=== PATIENT | male | born 1990 | race Caucasian/White ===

== ENCOUNTER 2017-02-20 18:56 | Emergency (ER) | payer MEDICAID ==
[2017-02-20 19:54] VITALS: BP 126/66
--- NOTE | 2017-02-20 20:54 | UC ---
General HPI - HPI Summary HPI Summary: This is an otherwise healthy 26 yo male who presents with complaints of a several week history of body aches, fatigue and intermittent fever. He is concerned about Lyme disease. He has had multiple tick bites over the last few months. Denies rash. Occasional nausea and diarrhea. He has not seen his PCP for these complaints. - History of Current Complaint Chief Complaint: UCGeneralIllness Stated Complaint: TEST FOR LYME DISEASE - Allergy/Home Medications Allergies/Adverse Reactions: Allergies Allergy/AdvReac Type Severity Reaction Status Date / Time No Known Allergies Allergy Verified 02/20/17 19:55 PMH/Surg Hx/FS Hx/Imm Hx Previously Healthy: Yes - Surgical History Surgical History: None - Family History Known Family History: Positive: None - Social History Alcohol Use: Occasionally Substance Use Type: Prescribed Substance Use Comment - Amount & Last Used: Benzos Smoking Status (MU): Former Smoker Review of Systems Constitutional: Fever, Fatigue Skin: Negative Eyes: Negative ENT: Negative Respiratory: Negative Cardiovascular: Negative Gastrointestinal: Diarrhea, Nausea Genitourinary: Negative Motor: Negative Neurovascular: Negative Musculoskeletal: Negative Neurological: Negative Psychological: Negative All Other Systems Reviewed And Are Negative: Yes Physical Exam Triage Information Reviewed: Yes Appearance: Well-Appearing Vital Signs: Initial Vital Signs Temp 97.8 F 02/20/17 19:51 Pulse 54 02/20/17 19:51 Resp 12 02/20/17 19:51 BP 126/66 02/20/17 19:51 Pulse Ox 100 02/20/17 19:51 Vital Signs Reviewed: Yes ENT: Positive: Normal ENT inspection Neck: Positive: Supple, Nontender, No Lymphadenopathy Respiratory: Positive: Chest non-tender, Lungs clear, Normal breath sounds. Negative: Crackles, Rhonchi, Wheezing Cardiovascular: Positive: RRR, No Murmur Abdomen Description: Positive: Nontender, Soft Musculoskeletal: Positive: Strength Intact Neurological Exam: Normal Neurological: Positive: Alert Skin Exam: Normal Skin: Negative: rashes Course/Dx - Course Course Of Treatment: This is an otherwise healthy 26 yo male who presents with c /o a several month history of body aches and fatigue with intermittent fevers and multiple tick bites. Lyme could certainly explain his symptoms but recommended he follow up with his primary care provider regarding his symptoms. Lyme serology drawn this evening and empirically started on doxycycline - Differential Dx - Multi-Symptom Provider Diagnoses: 1. Possible Lyme disease Discharge - Discharge Plan Condition: Stable Disposition: HOME Prescriptions: DOXYcycline CAP(*) [DOXYcycline 100MG CAP(*)] 100 mg PO BID #28 cap Patient Education Materials: Lyme Disease (ED) Referrals: Vilma Quiroz MD [Primary Care Provider] - 5 Days Additional Instructions: Activity: As tolerated Instructions: 1. Take antibiotic as directed 2. We will get results of your Lyme testing early next week 3. If the antibiotics are helping but the test is negative, please continue the full course of antibiotics 4. Please follow up with your primary care provider regarding your symptoms
[2017-02-24 21:35] LABS: Lyme Disease IgG Ab WB Negative (Negative)
== END 2017-02-20 21:03 | disposition home or self-care (01) ==
LOC: UCEAST 18:56
DX: Z11.2 Encounter for screening for other bacterial diseases (principal); Z87.891 Personal history of nicotine dependence
CPT/HCPCS: 86617; 99212; G0463

== ENCOUNTER 2017-07-14 15:06 | Emergency (ER) | payer OTHER ==
--- NOTE | 2017-07-14 16:24 | UC ---
Respiratory Complaint HPI - HPI Summary HPI Summary: Congestion, fever and fatigue for 2 days - History of Current Complaint Chief Complaint: UCRespiratory Stated Complaint: CHEST CONGESTION Time Seen by Provider: 07/14/17 16:17 Hx Obtained From: Patient Onset/Duration: Sudden Onset, Lasting Days - 2, Still Present, Worse Since - today Timing: Constant Severity Initially: Moderate Severity Currently: Moderate Pain Intensity: 5 Pain Scale Used: 0-10 Numeric Character: Cough: Nonproductive Aggravating Factors: Nothing Alleviating Factors: Nothing Associated Signs And Symptoms: Positive: Dyspnea, Fever, URI - Allergies/Home Medications Allergies/Adverse Reactions: Allergies Allergy/AdvReac Type Severity Reaction Status Date / Time No Known Allergies Allergy Verified 02/20/17 19:55 Home Medications: Home Medications Buprenorphine HCl-Naloxone HCl [Suboxone] 1 mis SL 07/14/17 [History] Escitalopram Oxalate [Lexapro 10 mg] 10 mg PO DAILY 07/14/17 [History Confirmed 07/14/17] PMH/Surg Hx/FS Hx/Imm Hx Previously Healthy: Yes Psychological History: Anxiety, Other Other Psychological History: Substance abuse disorder in remission - Surgical History Surgical History: None - Family History Known Family History: Positive: None - Social History Occupation: Employed Full-time Lives: With Family Alcohol Use: None Substance Use Type: None Substance Use Comment - Amount & Last Used: Benzos Smoking Status (MU): Light Every Day Tobacco Smoker Type: Smokeless Tobacco Review of Systems Constitutional: Fever, Chills, Fatigue Skin: Negative Eyes: Negative ENT: Negative Respiratory: Cough Cardiovascular: Negative Gastrointestinal: Negative Genitourinary: Negative Motor: Negative Neurovascular: Negative Musculoskeletal: Negative Neurological: Negative Psychological: Negative Is Patient Immunocompromised?: No All Other Systems Reviewed And Are Negative: Yes Physical Exam Triage Information Reviewed: Yes Appearance: Well-Appearing, No Pain Distress, Well-Nourished Vital Signs: Initial Vital Signs Temp 99.4 F 07/14/17 15:24 Pulse 69 07/14/17 15:24 Resp 18 07/14/17 15:24 BP 115/49 07/14/17 15:24 Pulse Ox 100 07/14/17 15:24 Vital Signs Reviewed: Yes Eye Exam: Normal Eyes: Positive: Conjunctiva Clear ENT Exam: Normal ENT: Positive: Normal ENT inspection, Hearing grossly normal, Pharynx normal, TMs normal, Uvula midline. Negative: Nasal congestion, Nasal drainage, Tonsillar swelling, Tonsillar exudate, Trismus, Muffled voice, Hoarse voice, Dental tenderness, Sinus tenderness Dental Exam: Normal Neck exam: Normal Neck: Positive: Supple, Nontender, No Lymphadenopathy Respiratory Exam: Normal Respiratory: Positive: Chest non-tender, Lungs clear, Normal breath sounds, No respiratory distress, No accessory muscle use Cardiovascular Exam: Normal Cardiovascular: Positive: RRR, No Murmur, Pulses Normal, Brisk Capillary Refill Musculoskeletal Exam: Normal Musculoskeletal: Positive: Strength Intact, ROM Intact, No Edema Neurological Exam: Normal Neurological: Positive: Alert, Muscle Tone Normal Psychological Exam: Normal Skin Exam: Normal UC Diagnostic Evaluation - Laboratory O2 Sat by Pulse Oximetry: 100 Diagnostic Studies Comment: influenza A/B (-) - Radiology Xray Interpretation: No Acute Changes Radiology Interpretation Completed By: ED Physician, Radiologist Respiratory Course/Dx - Course Course Of Treatment: zithromax, albuterol, tylenol, ibuprofen increase fluids follow with pcp prn - Differential Dx/Diagnosis Provider Diagnoses: Acute Bronchitis Discharge - Discharge Plan Condition: Stable Disposition: HOME Prescriptions: Albuterol HFA INHALER* [Ventolin HFA Inhaler*] 2 puff INH Q4H PRN #1 mdi PRN Reason: cough wheeze Azithromycin TAB* [Zithromax TAB (Z-FATMATA) 250 mg #6 tabs] 2 tab PO .TODAY, THEN 1 DAILY #1 fatmata Patient Education Materials: Acute Bronchitis (ED) Forms: *Work Release Referrals: [facility] [Outside] - If Needed
[2017-07-14] MEDS ORDERED: Albuterol/Ipratropium NEB.SOL* Albuterol 2.5 MG/Ipratropium 0.5 MG 3 ML INH ONE (16:25)
[2017-07-14] MEDS ORDERED: Ibuprofen TAB* 600 MG PO ONE (17:19)
[2017-07-14 17:24] VITALS: BP 140/51
--- NOTE | 2017-07-14 17:40 | RAD ---
HISTORY: Fever and cough COMPARISONS: March 13, 2011 VIEWS: 4: Frontal dual-energy and lateral views of the chest. FINDINGS: CARDIOMEDIASTINAL SILHOUETTE: The cardiomediastinal silhouette is normal. JOANNA: The joanna are normal. PLEURA: The costophrenic angles are sharp. No pleural abnormalities are noted. LUNG PARENCHYMA: The lungs are clear. ABDOMEN: The upper abdomen is clear. There is no subphrenic gas. BONES AND SOFT TISSUES: No bone or soft tissue abnormalities are noted. OTHER: None. IMPRESSION: NO ACTIVE CARDIOPULMONARY DISEASE.
== END 2017-07-14 18:05 | disposition home or self-care (01) ==
LOC: UCEAST 15:06
DX: J20.9 Acute bronchitis, unspecified (principal); F41.9 Anxiety disorder, unspecified; F19.11 Other psychoactive substance abuse, in remission; F17.200 Nicotine dependence, unspecified, uncomplicated
CPT/HCPCS: 71020; 87502; 99212; A9270-GY; G0463

== ENCOUNTER 2018-01-30 15:25 | Emergency (ER) | payer OTHER ==
[2018-01-30 15:36] VITALS: BP 130/72
--- NOTE | 2018-01-30 15:40 | UC ---
Skin Complaint HPI - HPI Summary HPI Summary: 27 yo male presents with rash to anterior left thigh, low grade fever, and body aches/joint pain for the last 3 days. He tells me that about 3 days ago he developed general body aches, fatigue, headache, and joint pain in his shoulders and knees - over the course of this time has had a low grade fever of around 99F. 2 days ago he noticed a round rash on the front of his thigh that has gotten larger since. He tells me that he gets bitten by ticks "all the time ". He denies SOB, chest pain, abdominal pain, n/v/d/c, dysuria, or recent illness. - History of Current Complaint Chief Complaint: UCBackPain Time Seen by Provider: 01/30/18 15:40 Stated Complaint: BACK PAIN, FEVER AND RASH Hx Obtained From: Patient Onset/Duration: Sudden Onset Onset Severity: Mild Current Severity: Mild Pain Intensity: 4 Pain Scale Used: 0-10 Numeric Location: Diffuse - Allergy/Home Medications Allergies/Adverse Reactions: Allergies Allergy/AdvReac Type Severity Reaction Status Date / Time No Known Allergies Allergy Verified 01/30/18 15:36 Home Medications: Home Medications Acetaminophen [Tylenol] 650 mg 01/30/18 [History] Ibuprofen 01/30/18 [History] Review of Systems Constitutional: Fever, Fatigue, Other - Body aches Skin: Rash Eyes: Negative ENT: Negative Respiratory: Negative Cardiovascular: Negative Gastrointestinal: Negative Genitourinary: Negative Motor: Negative Neurovascular: Negative Musculoskeletal: Arthralgia Neurological: Headache Psychological: Negative All Other Systems Reviewed And Are Negative: Yes PMH/Surg Hx/FS Hx/Imm Hx Respiratory History: Asthma - Surgical History Surgical History: None - Family History Known Family History: Positive: None - Social History Occupation: Employed Full-time Lives: With Family Alcohol Use: None Substance Use Type: None Substance Use Comment - Amount & Last Used: Benzos Smoking Status (MU): Light Every Day Tobacco Smoker Type: Smokeless Tobacco Physical Exam - Summary Physical Exam Summary: GENERAL: NAD. WDWN. No pain distress. SKIN: Right anterior thigh: 4.0cm bull's eye rash with central 1mm bite - consistent with tick. No other rash, open wounds, streaking, or edema. HEENT: Head: AT/NC Eyes: PERRLA. EOM intact. Conjunctiva clear without inflammation or discharge. Ears: Hearing grossly normal. TMs intact, no bulging, erythema, or edema. Nose: Nasal mucosa pink and moist. NTTP maxillary and frontal sinus. Throat: Posterior oropharynx without exudates, erythema, or tonsillar enlargement. Uvula midline. NECK: Supple. Nontender. No lymphadenopathy. CHEST: CTAB. No r/r/w. No accessory muscle use. Breathing comfortably and in no distress. CV: RRR. Without m/r/g. Pulses intact. Brisk cap refill. ABDOMEN: Soft. NTTP. No distention or guarding., No organomegaly. No CVA tenderness. Bowel sounds present MSK: FROM and 5/5 strength throughout. No edema. NEURO: Alert. CN II-XII grossly intact. PSYCH: Age appropriate behavior. Triage Information Reviewed: Yes Vital Signs: Initial Vital Signs Temp 98.6 F 01/30/18 15:29 Pulse 69 01/30/18 15:29 Resp 18 01/30/18 15:29 BP 130/72 01/30/18 15:29 Pulse Ox 100 01/30/18 15:29 Laboratory Tests 01/30/18 16:05 POC Urine Color Yellow POC Urine Clarity Clear POC Urine pH 6.0 POC Ur Specif [place] >= 1.030 POC Urine Protein Negative POC Ur Glucose (UA) Negative POC Urine Ketones Trace A POC Urine Blood Negative POC Urine Nitrite Negative POC Urine Bilirubin Negative POC Urine Urobilinogen 0.2 POC U Leukocyte Esteras Negative Course/Dx - Course Course Of Treatment: UA is unremarkable. Given his bull's eye rash and symptom history - it is likely that he has lyme disease. I had a long discussion with the pt regarding testing vs treating. He elected to begin treatment now without testing and f/u with Dr. Murry if symptoms do not improve. - Diagnoses Provider Diagnoses: Lyme disease. Bull's eye rash Discharge - Sign-Out/Discharge Documenting (check all that apply): Discharge/Admit/Transfer - Discharge Plan Condition: Stable Disposition: HOME Prescriptions: DOXYcycline CAP(*) [DOXYcycline 100MG CAP(*)] 100 mg PO BID #42 cap Patient Education Materials: Doxycycline (By mouth), Lyme Disease (ED) Referrals: No Primary Care Phys,NOPCP [Primary Care Provider] - Mario Murry MD [Medical Doctor] - If Needed Additional Instructions: If you develop a fever, shortness of breath, chest pain, new or worsening symptoms - please call your PCP or go to the ED. 1) If you finish the course of Doxycycline and are still having symptoms - please call Dr. Murry at the number below to schedule a follow up appointment. - Billing Disposition and Condition Condition: STABLE Disposition: Home
== END 2018-01-30 16:23 | disposition home or self-care (01) ==
LOC: UCEAST 15:25
DX: A69.20 Lyme disease, unspecified (principal); R21 Rash and other nonspecific skin eruption; F17.200 Nicotine dependence, unspecified, uncomplicated
CPT/HCPCS: 81003; 99212; G0463

== ENCOUNTER 2018-01-31 12:27 | Emergency (ER) | payer OTHER ==
[2018-01-31] MEDS ORDERED: NS 0.9% 1000 ML*IV.FLUID IV ONE (13:02)
[2018-01-31] MEDS ORDERED: Ondansetron ODT TAB* 4 MG PO ONE (13:05)
--- NOTE | 2018-01-31 13:30 | RAD ---
Indication: Back pain. CT of the abdomen and pelvis was performed without oral or IV contrast administration. Coronal and sagittal reconstructed images were obtained. Comparison is made with previous exam dated July 02, 2009 The lung bases demonstrates likely scarring or atelectasis in the left lower lobe. The liver demonstrates no focal masses. Normal in size. No intrahepatic ductal dilatation is noted. Gallbladder demonstrates no calcified gallstones. Pancreas demonstrates no mass or pancreatic duct dilatation. Spleen measures 13.6 cm in length and appears to be enlarged. No adrenal masses are noted. The kidneys demonstrate no definite hydronephrosis of either kidney. No ureteral calculi is definitively identified. The urinary bladder is otherwise unremarkable. Aorta and inferior vena cava are unremarkable. No pelvic adenopathy is noted. No dilated loops of bowel are noted. The colon is filled with stool. Likely normal appendix is noted. There is a small to moderate amount of free fluid in the cul-de-sac. Origin of which is undetermined. The colon is filled with stool. The bony structures are grossly unremarkable. IMPRESSION: Splenomegaly. Small to moderate amount of free fluid in the cul-de-sac origin of which is unclear.
--- NOTE | 2018-01-31 13:35 | RAD ---
Indication: Fever. Single frontal view of the chest performed at 1312 hours was reviewed. Comparison is made with previous exam dated July 14, 2017. No mediastinal shift is noted. Heart is of normal size and configuration. Lung heredia appear clear. IMPRESSION: NO ACTIVE CARDIOPULMONARY DISEASE IS NOTED.
[2018-01-31] MEDS ORDERED: cefTRIAXone(*) 1 GM in NS 0.9% 50 ML* 50 ML IVPB ONE (13:47)
[2018-01-31 13:59] LABS: ABS Basophils 0 10^3/ul (0-0.2); ABS Eosinophils 0 10^3/ul (0-0.6); ABS Lymphocytes 0.6 10^3/ul (1.0-4.8); ABS Monocytes 0.3 10^3/ul (0-0.8); ABS Neutrophils 3.9 10^3/ul (1.5-7.7); ABS Nucleated RBC 0 10^3/ul; Eosinophil % 0.2 % (0-6); Hematocrit 44 % (42-52); Hemoglobin 15.2 g/dl (14.0-18.0); Lymphocyte % 11.9 % (25-47); Mean Corpuscular HGB Conc 35 g/dl (31-36); Mean Corpuscular Hemoglobin 27 pg (27-31); Mean Corpuscular Volume 78 fL (80-94); Mean Platelet Volume 7.7 um3 (7.4-10.4); Nucleated Red Blood Cells % 0.3; Platelet Count 137 10^3/ul (150-450); Red Cell Distribution Width 13 % (10.5-15); White Blood Count 4.8 10^3/ul (3.5-10.8)
[2018-01-31 14:07] LABS: INR 1.07 (0.77-1.02)
[2018-01-31 14:16] LABS: EGFR Non-African American 138.9 (>60)
[2018-01-31] MEDS ORDERED: Ketorolac INJ* 30 MG/ML 1 ML VIAL IV ONE (15:48)
[2018-01-31] MEDS ORDERED: Ketorolac INJ* 30 MG/ML 1 ML VIAL ONE (15:49)
[2018-01-31 15:55] VITALS: BP 125/69
[2018-01-31 16:23] LABS: Urine Appearance Clear; Urine Blood Negative (Negative); Urine Color Yellow; Urine Ketones Negative (Negative); Urine Protein Negative (Negative); Urine Specific Gravity 1.025 (1.010-1.030); Urine Urobilinogen Negative (Negative)
--- NOTE | 2018-01-31 18:48 | ED ---
Mike Kaiser Tariq, scribed for Grant Sherman MD on 01/31/18 at 1327 . Back Pain - HPI Summary HPI Summary: A 27 y/o male presents to ED c/o constant back pain. Additionally c/o neck pain. According to pt, he feels pressure in the lower part of his back, off to both sides. Pains started 3 days ago when he woke up in the morning. Once he was out of bed, his back was "killing" him and he could barely walk. Additional Sx include intermittent joint pain and diffuse myalgia. Furthermore, he has a headache, nausea and rash on the left thigh. Throughout the last 3 days, the pain became worse. Additionally, pt noted low-grade fevers in upper 90s. Pt denies any issues with urination or diarrhea. He does not believe it is a kidney stone because he has had them in the past and the pain is very different. SHx of imbookin ([place])ing work. No allergies. Current medications are Doxycycline (taken 2 doses), Tylenol and Ibuprofen (1.5 hours ago). - History of Current Complaint Chief Complaint: EDFever Stated Complaint: VOMITING/FLANK PAIN Time Seen by Provider: 01/31/18 12:43 Hx Obtained From: Patient Onset/Duration: Sudden Onset, Lasting Days, Still Present, Worse Since - 3 days ago Onset/Duration: Started Days Ago, Still Present, Worse Since - 3 days ago Timing: Constant - Back pain, Intermittent - Joint and diffuse myalgia, Lasting Days - 3 days Back Pain Location: Is Diffuse - Off to sides Severity Initially: Severe Severity Currently: Moderate Pain Intensity: 6 Pain Scale Used: 0-10 Numeric Character: Aching - Pressure Aggravating Symptom(s): Movement, Walking, Other - Certain positions Alleviating Symptom(s): Position, OTC Meds - Tylenol and Ibuprofen - Allergies/Home Medications Allergies/Adverse Reactions: Allergies Allergy/AdvReac Type Severity Reaction Status Date / Time No Known Allergies Allergy Verified 01/31/18 12:47 PMH/Surg Hx/FS Hx/Imm Hx Endocrine/Hematology History: Denies: Hx Diabetes Cardiovascular History: Denies: Hx Hypertension Respiratory History: Reports: Hx Asthma - childhood History: Reports: Hx Kidney Stones Infectious Disease History: No Infectious Disease History: Denies: Traveled Outside the [place] in Last 30 Days - Family History Known Family History: Positive: Diabetes - Social History Alcohol Use: None Substance Use Type: Reports: None Substance Use Comment - Amount & Last Used: Benzos Smoking Status (MU): Light Every Day Tobacco Smoker Type: Smokeless Tobacco Review of Systems Positive: Nausea. Negative: Diarrhea Positive: no symptoms reported Positive: Myalgia - Diffuse, Other - POSITIVE: Joint pain, neck pain, back pain Positive: Headache All Other Systems Reviewed And Are Negative: Yes Physical Exam - Summary Physical Exam Summary: General:Mildly ill appearing Skin:Boli rash 4 cm in length. Head:normal Eyes:EOMI, [place] ENT:normal Neck:supple with FROM, nontender Respiratory:CTA, breath sounds present Cardiovascular:RRR Abdomen:soft, nontender Bowel:present Musculoskeletal:Tender bilateral flanks, not at midline. Tender lateral neck, not at midline. Neurological:sensory/motor intact, A&O x3 Psychological:affect/mood appropriate Triage Information Reviewed: Yes Vital Signs On Initial Exam: Initial Vitals Temp Pulse Resp BP Pulse Ox 100.5 F 72 16 153/90 98 01/31/18 12:42 01/31/18 12:42 01/31/18 12:42 01/31/18 12:42 01/31/18 12:42 Vital Signs Reviewed: Yes Diagnostics - Vital Signs Vital Signs Temp Pulse Resp BP Pulse Ox 01/31/18 12:42 100.5 F 72 16 153/90 98 - Laboratory Lab Results: Lab Results 01/31/18 01/31/18 01/31/18 Range/Units 13:49 13:49 13:49 WBC 4.8 (3.5-10.8) 10^3/ul RBC 5.60 H (4.00-5.40) 10^6/ul Hgb 15.2 (14.0-18.0) g/dl Hct 44 (42-52) % MCV 78 L (80-94) fL MCH 27 (27-31) pg MCHC 35 (31-36) g/dl RDW 13 (10.5-15) % Plt Count 137 L (150-450) 10^3/ul MPV 7.7 (7.4-10.4) um3 Neut % (Auto) 80.9 (38-83) % Lymph % (Auto) 11.9 L (25-47) % [place] % (Auto) 6.6 (0-7) % Eos % (Auto) 0.2 (0-6) % Baso % (Auto) 0.4 (0-2) % Absolute Neuts (auto) 3.9 (1.5-7.7) 10^3/ul Absolute Lymphs (auto) 0.6 L (1.0-4.8) 10^3/ul Absolute Monos (auto) 0.3 (0-0.8) 10^3/ul Absolute Eos (auto) 0 (0-0.6) 10^3/ul Absolute Basos (auto) 0 (0-0.2) 10^3/ul Absolute Nucleated RBC 0 10^3/ul Nucleated RBC % 0.3 INR (Anticoag Therapy) 1.07 H (0.77-1.02) APTT 28.7 (26.0-36.3) seconds Sodium (135-145) mmol/L Potassium (3.5-5.0) mmol/L Chloride (101-111) mmol/L Carbon Dioxide (22-32) mmol/L Anion Gap (2-11) mmol/L BUN (6-24) mg/dL Creatinine (0.67-1.17) mg/dL Est GFR ( Amer) (>60) Est GFR (Non-Af Amer) (>60) BUN/Creatinine Ratio (8-20) Glucose (70-100) mg/dL Lactic Acid (0.5-2.0) mmol/L Calcium (8.6-10.3) mg/dL Total Bilirubin (0.2-1.0) mg/dL AST (13-39) U/L ALT (7-52) U/L Alkaline Phosphatase (34-104) U/L Total Creatine Kinase (10-223) U/L Troponin I (<0.04) ng/mL C-Reactive Protein (<8.01) mg/L Total Protein (6.4-8.9) g/dL Albumin (3.2-5.2) g/dL Globulin (2-4) g/dL Albumin/Globulin Ratio (1-3) Lipase (11.0-82.0) U/L Urine Color Yellow Urine Appearance Clear Urine pH 6.0 (5-9) Ur Specific [place] 1.025 (1.010-1.030) Urine Protein Negative (Negative) Urine Ketones Negative (Negative) Urine Blood Negative (Negative) Urine Nitrate Negative (Negative) Urine Bilirubin Negative (Negative) Urine Urobilinogen Negative (Negative) Ur Leukocyte Esterase Trace A (Negative) Urine WBC (Auto) Trace(0-5/hpf) (Absent) Urine RBC (Auto) 1+(3-5/hpf) A (Absent) Urine Bacteria Absent (Absent) Urine Glucose Negative (Negative) Monoscreen Negative (Negative) 01/31/18 01/31/18 Range/Units 13:49 13:49 WBC (3.5-10.8) 10^3/ul RBC (4.00-5.40) 10^6/ul Hgb (14.0-18.0) g/dl Hct (42-52) % MCV (80-94) fL MCH (27-31) pg MCHC (31-36) g/dl RDW (10.5-15) % Plt Count (150-450) 10^3/ul MPV (7.4-10.4) um3 Neut % (Auto) (38-83) % Lymph % (Auto) (25-47) % [place] % (Auto) (0-7) % Eos % (Auto) (0-6) % Baso % (Auto) (0-2) % Absolute Neuts (auto) (1.5-7.7) 10^3/ul Absolute Lymphs (auto) (1.0-4.8) 10^3/ul Absolute Monos (auto) (0-0.8) 10^3/ul Absolute Eos (auto) (0-0.6) 10^3/ul Absolute Basos (auto) (0-0.2) 10^3/ul Absolute Nucleated RBC 10^3/ul Nucleated RBC % INR (Anticoag Therapy) (0.77-1.02) APTT (26.0-36.3) seconds Sodium 130 L (135-145) mmol/L Potassium 4.2 (3.5-5.0) mmol/L Chloride 98 L (101-111) mmol/L Carbon Dioxide 25 (22-32) mmol/L Anion Gap 7 (2-11) mmol/L BUN 9 (6-24) mg/dL Creatinine 0.68 (0.67-1.17) mg/dL Est GFR ( Amer) 168.0 (>60) Est GFR (Non-Af Amer) 138.9 (>60) BUN/Creatinine Ratio 13.2 (8-20) Glucose 111 H (70-100) mg/dL Lactic Acid 1.0 (0.5-2.0) mmol/L Calcium 9.8 (8.6-10.3) mg/dL Total Bilirubin 0.50 (0.2-1.0) mg/dL AST 47 H (13-39) U/L ALT 79 H (7-52) U/L Alkaline Phosphatase 71 (34-104) U/L Total Creatine Kinase 77 (10-223) U/L Troponin I 0.00 (<0.04) ng/mL C-Reactive Protein 88.57 H (<8.01) mg/L Total Protein 7.5 (6.4-8.9) g/dL Albumin 4.2 (3.2-5.2) g/dL Globulin 3.3 (2-4) g/dL Albumin/Globulin Ratio 1.3 (1-3) Lipase < 10 L (11.0-82.0) U/L Urine Color Urine Appearance Urine pH (5-9) Ur Specific [place] (1.010-1.030) Urine Protein (Negative) Urine Ketones (Negative) Urine Blood (Negative) Urine Nitrate (Negative) Urine Bilirubin (Negative) Urine Urobilinogen (Negative) Ur Leukocyte Esterase (Negative) Urine WBC (Auto) (Absent) Urine RBC (Auto) (Absent) Urine Bacteria (Absent) Urine Glucose (Negative) Monoscreen (Negative) Result Diagrams: 01/31/18 13:49 01/31/18 13:49 Lab Statement: Any lab studies that have been ordered have been reviewed, and results considered in the medical decision making process. - Radiology CXR Radiology Interpretation Completed By: Radiologist - NO ACTIVE CARDIOPULMONARY DISEASE IS NOTED. ED PHYSICIAN REVIEWED THIS RADIOLOGY REPORT. - CT CT A/P CT Interpretation Completed By: Radiologist - Splenomegaly. Small to moderate amount of free fluid in the cul-de-sac origin of which is unclear. ED physician reviewed this radiology report. Back Pain Course/Dx - Course Course Of Treatment: PATIENT HAS A BULLS EYE RASH ON LEFT THIGH. CLINICALLY, THE PATIENT DOES NOT HAVE MENINGITIS. HIS NECK AND LOW BACK PAIN ARE BOTH PARASPINOUS, NOT MIDLINE. DISCUSSED RESULTS WITH THE PATIENT. WILL CONTINUE DOXYCYCLINE. ZOFRAN ADDED. PATIENT KNOWS TO GET RECHECKED IF CONDITION WORSENS. - Diagnoses Provider Diagnoses: Cellulitis, Lyme disease Discharge - Sign-Out/Discharge Documenting (check all that apply): Discharge/Admit/Transfer - Discharge Plan Condition: Stable Disposition: HOME Prescriptions: Ondansetron ODT TAB* [Zofran 4 MG Odt TAB*] 4 mg PO Q6H PRN #15 tab.odt PRN Reason: Nausea Patient Education Materials: Lyme Disease (ED), Cellulitis (ED) Referrals: [facility] [Outside] Additional Instructions: FOLLOW UP WITH YOUR DOCTOR. GET RECHECKED FOR ANY WORSENING OF YOUR CONDITION OR QUESTIONS OR CONCERNS. - Billing Disposition and Condition Condition: STABLE Disposition: Home The documentation as recorded by the Mike carnes Tariq accurately reflects the service I personally performed and the decisions made by me, Grant Sherman MD.
== END 2018-01-31 16:25 | disposition home or self-care (01) ==
LOC: ED 12:27
DX: L03.116 Cellulitis of left lower limb (principal); A69.20 Lyme disease, unspecified; F17.220 Nicotine dependence, chewing tobacco, uncomplicated
CPT/HCPCS: 36415; 71045; 74176; 80053; 81003; 81015; 82550; 83605; 83690; 84484; 85025; 85610; 85730; 86140; 86308; 86618; 87040; 87086; 96360; 96374; 96375; 99283; A9270-GY; J0696; J1885

== ENCOUNTER 2018-05-24 11:58 | Emergency (ER) | payer OTHER ==
[2018-05-24 12:12] VITALS: BP 156/73
--- NOTE | 2018-05-24 13:04 | UC ---
Respiratory Complaint HPI - HPI Summary HPI Summary: Stuffy nose for a day, then painful cough and chest tightness starting 4 days ago. Had to call out of work yesterday, felt feverish last night. Does not have PCP, no regular asthma care but states it has been under control lately. Thinks he got sick from his son. - History of Current Complaint Chief Complaint: UCRespiratory Stated Complaint: URI Time Seen by Provider: 05/24/18 12:44 Hx Obtained From: Patient Onset/Duration: Gradual Onset, Lasting Days Timing: Constant Severity Currently: Moderate Pain Intensity: 5 Character: Cough: Productive Aggravating Factors: Deep Breaths, Recumbent Position Alleviating Factors: Bronchodilator Associated Signs And Symptoms: Positive: Chills, URI, Nasal Congestion - Allergies/Home Medications Allergies/Adverse Reactions: Allergies Allergy/AdvReac Type Severity Reaction Status Date / Time No Known Allergies Allergy Verified 05/24/18 12:12 Home Medications: Home Medications guaiFENesin [Mucinex] 1,200 mg PO ONCE PRN 05/24/18 [History Confirmed 05/24/18] PMH/Surg Hx/FS Hx/Imm Hx Respiratory History: Asthma - Surgical History Surgical History: None - Family History Known Family History: Positive: None, Diabetes - Social History Occupation: Employed Full-time Lives: With Family Alcohol Use: None Substance Use Type: None Substance Use Comment - Amount & Last Used: Benzos Smoking Status (MU): Light Every Day Tobacco Smoker Type: Smokeless Tobacco Amount Used/How Often: 5 cig/day Household Exposure Type: Cigarettes Cessation Counseling: Patient Advised to Stop Review of Systems Constitutional: Chills, Fatigue Skin: Negative Eyes: Negative ENT: Sore Throat, Nasal Discharge Respiratory: Cough Cardiovascular: Negative Gastrointestinal: Negative Genitourinary: Negative Motor: Negative Neurovascular: Negative Musculoskeletal: Negative Neurological: Negative Psychological: Negative Is Patient Immunocompromised?: No All Other Systems Reviewed And Are Negative: Yes Physical Exam Triage Information Reviewed: Yes Appearance: No Pain Distress, Well-Nourished Vital Signs: Initial Vital Signs Temp 97.7 F 05/24/18 12:07 Pulse 73 05/24/18 12:07 Resp 20 05/24/18 12:07 BP 156/73 05/24/18 12:07 Pulse Ox 98 05/24/18 12:07 Vital Signs Reviewed: Yes Eye Exam: Normal Eyes: Positive: Conjunctiva Clear ENT: Positive: Hearing grossly normal, Nasal congestion, Nasal drainage, TMs normal. Negative: Tonsillar swelling, Tonsillar exudate Dental Exam: Normal Neck exam: Normal Neck: Positive: Supple, Nontender, No Lymphadenopathy Respiratory: Positive: No respiratory distress, Wheezing - small. Negative: Respiratory distress, Crackles, Rhonchi Cardiovascular Exam: Normal Cardiovascular: Positive: RRR, No Murmur Musculoskeletal Exam: Normal Neurological Exam: Normal Neurological: Positive: Alert Psychological Exam: Normal Skin Exam: Normal Diagnostic Evaluation - Laboratory O2 Sat by Pulse Oximetry: 98 Respiratory Course/Dx - Differential Dx/Diagnosis Differential Diagnosis/HQI/PQRI: Asthma, Bronchitis, Influenza Provider Diagnoses: acute bronchitis, likely viral Discharge - Sign-Out/Discharge Documenting (check all that apply): Patient Departure All imaging exams completed and their final reports reviewed: No Studies - Discharge Plan Condition: Stable Disposition: HOME Prescriptions: Albuterol HFA INHALER* [Ventolin HFA Inhaler*] 2 puff INH Q4H PRN #1 mdi PRN Reason: cough wheeze Fluticasone-Salmeterol 250-50* [Advair Diskus 250-50*] 1 puff INH BID #1 diskus Patient Education Materials: Acute Bronchitis (ED), Asthma (DC) Referrals: No Primary Care Phys,NOPCP [Primary Care Provider] - [facility] [Outside] - 1 Week Additional Instructions: Please follow up with a primary care provider within a week for a recheck. You have a viral infection of the respiratory passages -- a "cold." This common infection causes nasal congestion, drainage, and often sore throat and cough. It is highly contagious. The disease usually worsens for 3-5 days, then resolves after about 10 to 14 days. It is very common to have some residual cough or nasal congestion for another week or so. There is no "cure" for the viral infection -- it must run its course. If there is a complication, such as bacterial infection in the nose, sinuses, middle ear, or bronchial tubes, antibiotics may be required. The antibiotics won't affect the virus. Drink plenty of fluids. A humidifier may help. An expectorant medication or decongestant may make you more comfortable. Use acetaminophen or ibuprofen for fever or aches. Please call or return if you develop difficulty breathing, fever over 100F , sudden worsening, or failure to improve at all for 4 or more days. - Billing Disposition and Condition Condition: STABLE Disposition: Home
== END 2018-05-24 13:05 | disposition home or self-care (01) ==
LOC: UCEAST 11:58
DX: J20.9 Acute bronchitis, unspecified (principal); F17.210 Nicotine dependence, cigarettes, uncomplicated
CPT/HCPCS: 99212; G0463